=== PATIENT | male | born 2005 | race Caucasian/White ===

== ENCOUNTER 2023-11-10 14:08 | Emergency (ER) | payer SELFPAY ==
[~2023-11-10] VITALS: Ht 172.7 cm; Wt 100.0 kg
[2023-11-10 14:15] VITALS: O2SAT 100
[2023-11-10] MEDS: MAGNESIUM/ALUMINUM HYDROXIDE/SIMETHICONE 30ML UDC PO ONE (18:01)
[2023-11-10] MEDS: FAMOTIDINE 20MG TABLET PO ONE (18:01)
[2023-11-10 18:31] LABS: BASOPHILS % 0.4 % (0.0-2.0); EOSINOPHILS % 2.7 % (0.0-5.0); HEMATOCRIT. 44.9 % (42.0-52.0); HEMOGLOBIN. 15.6 g/dL (14.0-18.0); LYMPHOCYTES % 29.9 % (20.0-50.0); MEAN CORPUSCULAR HEMOGLOBIN 30.2 pg (28.0-32.0); MEAN CORPUSCULAR HGB CONC 34.7 g/dL (31.0-37.0); MEAN PLATELET VOLUME 7.1 fl (7.4-10.4); MONOCYTES % 6.3 % (2.0-8.0); NEUTROPHILS % 60.7 % (40.0-76.0); PLATELET 326 x1000/uL (130-400); RED BLOOD CELL COUNT 5.16 mill/uL (4.7-6.1); RED CELL DISTRIBUTION WIDTH 13.2 % (11.6-14.6); WHITE BLOOD COUNT 11.8 x1000/uL (4.5-11.0)
[2023-11-10 18:43] LABS: CHLORIDE 104 mEq/L (98-107); POTASSIUM 3.7 mEq/L (3.5-5.1); SODIUM 137 mEq/L (136-145)
[2023-11-10 18:44] LABS: CARBON DIOXIDE 26 mEq/L (21-32)
[2023-11-10 18:45] LABS: CALCIUM 9.5 mg/dL (8.7-10.4)
[2023-11-10 18:49] LABS: CREATININE 0.9 mg/dL (0.6-1.3); GLUCOSE 91 mg/dL (70-105)
[2023-11-10 18:50] LABS: TROPONIN I HIGH SENSITIVITY 6 ng/L (3.0-53); UREA NITROGEN BLOOD 8 mg/dL (9-23)
[2023-11-10 18:51] LABS: ALANINE AMINOTRANSFERASE 25 IU/L (10-49); ALBUMIN 4.7 g/dL (3.2-4.8); ASPARTATE AMINOTRANSFERASE 21 IU/L (<34)
[2023-11-10 18:52] LABS: BILIRUBIN TOTAL 0.3 mg/dL (0.1-1.0); PROTEIN TOTAL 7.7 g/dL (6.0-8.3)
[2023-11-10 18:56] LABS: BILIRUBIN DIRECT < 0.1 mg/dL (<=3.0)
[2023-11-10] MEDS ORDERED: NAPR220C61 MT (19:22)
[2023-11-10 19:30] VITALS: BP 149/76; PULSE 73; RESP 16; TEMP 97.7
== END 2023-11-10 20:00 | disposition home or self-care (01) ==
LOC: ER 14:20
DX: R07.9 Chest pain, unspecified (principal)
CPT/HCPCS: 36415; 71045; 80048; 80076; 84484; 85025; 93005; 99285